=== PATIENT | male | born 1935 | race Caucasian/White ===

== ENCOUNTER 2021-12-13 15:56 | Emergency (ER) | payer OTHER ==
[~2021-12-13] VITALS: Ht 175.3 cm; Wt 71.0 kg
[2021-12-13] VITALS (14 sets, daily range): BP systolic 130–155; BP diastolic 54–79
[~2021-12-13 15:56] MED LIST: AMLODIPINE5 MG PO; ASPIRIN EC81 MG PO; METOPROL TAR25 MG PO; NITROGLYCER0.4 MG SL; SIMVASTATIN20 MG PO; VITAMIN D50000 UN1 PO
[2021-12-13 16:37] LABS: HEMATOCRIT 44.4 % (39.0-50.0); HEMOGLOBIN 14.8 g/dl (14.0-18.0); IMMATURE GRANULOCYTES 0.2 % (0.0-5.0); MEAN CELL VOLUME 92.3 fL CALC (80.0-100.0); MEAN CORPUSCULAR HGB 30.8 pG CALC (26.0-32.0); MEAN CORPUSCULAR HGB CONC 33.3 g/dL CAL (32.0-36.0); NEUT# 10.71 thou/uL (1.82-7.42); RED BLOOD COUNT 4.81 mill/uL (4.70-6.10); RED CELL DISTRI WIDTH 12.9 % (11.5-15.5)
[2021-12-13 16:51] LABS: ALBUMIN 3.8 g/dL (3.2-5.0); ANION GAP 18 (6-22 (CALC)); BUN 17 mg/dL (8-23); BUN/CREATININE RATIO 15 (12-20 (CALC)); CARBON DIOXIDE 24 mmol/l (22-30); CHLORIDE 102 mmol/l (95-108); CREATININE 1.1 mg/dL (0.7-1.3); GFR FOR AFR.AMER. > 60 ML/MIN (>=60 (CALC)); GFR OTHER RACES > 60 ML/MIN (>=60 (CALC)); POTASSIUM 3.9 mmol/l (3.5-5.1); SODIUM 140 mmol/l (137-146); TOTAL PROTEIN 6.2 g/dL (6.3-8.2)
[2021-12-13 16:52] LABS: ALKALINE PHOSPHATASE 323 u/l (38-126); BILIRUBIN, TOTAL 2.3 mg/dL (0.0-1.4); SGOT/AST 101 u/l (19-48)
[2021-12-13 17:09] LABS: URINE BILIRUBIN - DIPSTICK NEGATIVE (NEGATIVE); URINE BLOOD DIPSTICK NEGATIVE (NEGATIVE); URINE COLOR YELLOW; URINE GLUCOSE - DIPSTICK NEGATIVE (NEGATIVE); URINE KETONE NEGATIVE (NEGATIVE); URINE LEUK ESTERASE NEGATIVE (NEGATIVE); URINE PROTEIN - DIPSTICK TRACE mg/dL (NEG-TRACE); URINE SPECIFIC GRAVITY 1.025
[2021-12-13 17:12] LABS: URINE NITRITE - DIPSTICK NEGATIVE (Negative)
== END 2021-12-13 19:57 | disposition home or self-care (01) | DRG 864 ==
LOC: ED 15:56
PROVIDERS: Family Medicine
DX: R50.9 Fever, unspecified (principal); I10 Essential (primary) hypertension; F17.200 Nicotine dependence, unspecified, uncomplicated; Z20.822 Contact with and (suspected) exposure to COVID-19

== ENCOUNTER 2021-12-14 00:48 | Emergency (ER) | payer OTHER ==
[~2021-12-14] VITALS: Ht 175.3 cm; Wt 71.0 kg
[2021-12-14 02:11] LABS: HEMATOCRIT 39.6 % (39.0-50.0); HEMOGLOBIN 12.9 g/dl (14.0-18.0); IMMATURE GRANULOCYTES 0.2 % (0.0-5.0); MEAN CELL VOLUME 94.5 fL CALC (80.0-100.0); MEAN CORPUSCULAR HGB 30.8 pG CALC (26.0-32.0); MEAN CORPUSCULAR HGB CONC 32.6 g/dL CAL (32.0-36.0); NEUT# 11.06 thou/uL (1.82-7.42); RED BLOOD COUNT 4.19 mill/uL (4.70-6.10)
[2021-12-14 02:47] LABS: ALBUMIN 3.3 g/dL (3.2-5.0); ALKALINE PHOSPHATASE 234 u/l (38-126); AMYLASE 75 u/l (30-110); ANION GAP 12 (6-22 (CALC)); BILIRUBIN, TOTAL 3.2 mg/dL (0.0-1.4); BUN 16 mg/dL (8-23); BUN/CREATININE RATIO 13 (12-20 (CALC)); CARBON DIOXIDE 23 mmol/l (22-30); CHLORIDE 108 mmol/l (95-108); CREATININE 1.2 mg/dL (0.7-1.3); GFR FOR AFR.AMER. > 60 ML/MIN (>=60 (CALC)); GFR OTHER RACES 58 ML/MIN (>=60 (CALC)); POTASSIUM 3.6 mmol/l (3.5-5.1); SGOT/AST 114 u/l (19-48); SODIUM 139 mmol/l (137-146); TOTAL PROTEIN 5.8 g/dL (6.3-8.2)
[2021-12-14 04:34] LABS: MYOGLOBIN 138 ng/mL (0 - 121)
[2021-12-14 07:27] VITALS: BP 119/61
== END 2021-12-14 07:54 | disposition short-term general hospital (02) | DRG 948 ==
LOC: ED 00:48
PROVIDERS: Emergency Medicine
DX: R79.89 Other specified abnormal findings of blood chemistry (principal); R74.8 Abnormal levels of other serum enzymes; I10 Essential (primary) hypertension; F17.200 Nicotine dependence, unspecified, uncomplicated
CPT/HCPCS: J1644

== ENCOUNTER 2023-12-03 22:06 | Emergency (ER) | payer OTHER ==
[~2023-12-03] VITALS: Ht 175.3 cm; Wt 85.0 kg
[2023-12-03 22:14] VITALS: BP 224/90
[2023-12-03] MEDS ORDERED: ACETAMINOPHEN 500 MG TAB PO ONE (22:20)
[2023-12-03] MEDS ORDERED: ELIQUIS5 MG PO (22:22)
[2023-12-03 22:30] VITALS: BP 210/82
[2023-12-03 23:01] VITALS: BP 202/80
[2023-12-03 23:30] VITALS: BP 210/84
[2023-12-03 23:40] VITALS: BP 211/85
[2023-12-03 23:52] VITALS: BP 211/85
== END 2023-12-03 23:52 | disposition home or self-care (01) | DRG 605 ==
LOC: ED 22:06
DX: S00.03XA Contusion of scalp, initial encounter (principal); I10 Essential (primary) hypertension; F17.200 Nicotine dependence, unspecified, uncomplicated; W19.XXXA Unspecified fall, initial encounter; Z86.718 Personal history of other venous thrombosis and embolism; Z95.1 Presence of aortocoronary bypass graft; Z85.528 Personal history of other malignant neoplasm of kidney; Z90.5 Acquired absence of kidney